=== PATIENT | female | born 1975 | race Caucasian/White ===

== ENCOUNTER 2017-02-08 14:43 | Emergency (ER) | payer MEDICAID, OTHER ==
[~2017-02-08] VITALS: Ht 162.6 cm; Wt 70.0 kg
[~2017-02-08 14:43] MED LIST: AMLO10TA80 PO; CETI10TA6 PO; HYDR25TA PO
[2017-02-08] MEDS ORDERED: IBUPROFEN 600MG TABLET PO ONE (16:30)
[2017-02-08 16:58] VITALS: BP 154/93
== END 2017-02-08 17:01 | disposition home or self-care (01) ==
LOC: ER 15:00
DX: M25.512 Pain in left shoulder (principal); I10 Essential (primary) hypertension; Z90.49 Acquired absence of other specified parts of digestive tract; Z88.0 Allergy status to penicillin
CPT/HCPCS: 73030; 99284; A4565

== ENCOUNTER 2019-08-31 14:11 | Emergency (ER) | payer MEDICAID, OTHER ==
[~2019-08-31] VITALS: Ht 167.6 cm; Wt 84.0 kg
[2019-08-31] MEDS ORDERED: IBUPROFEN 400MG TABLET PO ONE (18:15)
[2019-08-31] MEDS ORDERED: METOCLOPRAMIDE HCL 10MG TABLET PO ONE (18:15)
[2019-08-31] MEDS ORDERED: DIPHENHYDRAMINE 25MG CAPSULE PO ONE (18:15)
[2019-08-31 18:35] VITALS: BP 153/72
== END 2019-08-31 19:54 | disposition home or self-care (01) ==
LOC: ER 14:40
DX: R51 Headache (principal); I10 Essential (primary) hypertension; Z88.0 Allergy status to penicillin; Z90.49 Acquired absence of other specified parts of digestive tract
CPT/HCPCS: 81025; 99282; J8597; Q0163

== ENCOUNTER 2021-01-17 05:51 | Emergency (ER) | payer MEDICAID, OTHER ==
[~2021-01-17] VITALS: Ht 167.6 cm; Wt 91.0 kg
[2021-01-17] MEDS ORDERED: ONDANSETRON HCL 4MG/2ML INJ IV STA (06:15)
[2021-01-17] MEDS ORDERED: MORPHINE SULFATE 4 MG/ML CPJ (NOT FOR IM USE) IV STA (06:15)
[2021-01-17 06:33] LABS: CLARITY URINE TURBID (CLEAR); KETONES URINE 2+ (NEGATIVE); LEUKOCYTE ESTERASE URINE 1+ (NEGATIVE); NITRITE URINE POSITIVE (NEGATIVE); OCCULT BLOOD URINE 3+ (NEGATIVE); PROTEIN URINE 3+ (NEGATIVE); SPECIFIC GRAVITY URINE 1.039 (1.005-1.030)
[2021-01-17 06:36] LABS: COLOR URINE AMBER (YELLOW)
[2021-01-17 06:51] LABS: BASOPHILS % 0.2 % (0.0-2.0); EOSINOPHILS % 0.3 % (0.0-5.0); HEMATOCRIT. 39.9 % (36.0-48.0); HEMOGLOBIN. 13.7 g/dL (12.0-16.0); LYMPHOCYTES % 7.2 % (20.0-50.0); MEAN CORPUSCULAR HEMOGLOBIN 30.3 pg (28.0-32.0); MEAN CORPUSCULAR VOLUME 88.5 fL (81.0-99.0); MONOCYTES % 7.7 % (2.0-8.0); NEUTROPHILS % 84.6 % (40.0-76.0); PLATELET 252 x1000/uL (130-400); RED BLOOD CELL COUNT 4.51 mill/uL (4.2-5.4); RED CELL DISTRIBUTION WIDTH 13.5 % (11.6-14.6)
[2021-01-17 06:53] LABS: INR 1.1; PROTHROMBIN TIME 11.8 sec (9.6-11.0)
[2021-01-17 07:10] LABS: CHLORIDE 102 mEq/L (98-107)
[2021-01-17] MEDS ORDERED: TOPUD PO (07:58)
[2021-01-17] MEDS ORDERED: LEVO750T46 PO (07:58)
[2021-01-17 08:23] VITALS: BP 151/92
== END 2021-01-17 08:25 | disposition home or self-care (01) ==
LOC: ER 05:51
DX: N39.0 Urinary tract infection, site not specified (principal); I10 Essential (primary) hypertension; Z90.49 Acquired absence of other specified parts of digestive tract; Z88.0 Allergy status to penicillin
CPT/HCPCS: 36415; 80053; 81003; 81025; 83690; 85025; 85610; 93005; 96374; 96375; 99284; J2270; J2405

== ENCOUNTER 2021-01-18 23:03 | Emergency (ER) | payer MEDICAID ==
[~2021-01-18] VITALS: Ht 162.6 cm; Wt 77.0 kg
[~2021-01-18 23:03] MED LIST changes: +LEVO750T46 PO; +TOPUD PO
[2021-01-18] MEDS ORDERED: ONDANSETRON 4MG ODT PO STA (23:22)
[2021-01-18] MEDS ORDERED: METOCLOPRAMIDE HCL 10MG/2ML VIAL IV STA (23:22)
[2021-01-18] MEDS ORDERED: FAMOTIDINE 20MG/2ML VIAL IV STA (23:22)
[2021-01-18] MEDS ORDERED: MAGNESIUM/ALUMINUM HYDROXIDE/SIMETHICONE 30ML UDC PO STA (23:22)
[2021-01-18] MEDS ORDERED: VISCOUS LIDOCAINE 2% 15 ML UDC PO STA (23:22)
[2021-01-19 00:59] LABS: CHLORIDE 103 mEq/L (98-107)
[2021-01-19 01:00] LABS: BASOPHILS % 0.4 % (0.0-2.0); HEMATOCRIT. 39.5 % (36.0-48.0); HEMOGLOBIN. 13.4 g/dL (12.0-16.0); LYMPHOCYTES % 20.4 % (20.0-50.0); MEAN CORPUSCULAR HEMOGLOBIN 29.7 pg (28.0-32.0); MEAN CORPUSCULAR VOLUME 87.5 fL (81.0-99.0); MEAN PLATELET VOLUME 7.9 fl (7.4-10.4); NEUTROPHILS % 67.2 % (40.0-76.0); PLATELET 286 x1000/uL (130-400); RED BLOOD CELL COUNT 4.51 mill/uL (4.2-5.4); RED CELL DISTRIBUTION WIDTH 13.4 % (11.6-14.6)
[2021-01-19 01:04] LABS: ETHANOL BLOOD < 10 mg/dL
[2021-01-19] MEDS ORDERED: IOHEXOL-300 100 ML BOTTLE ONE (01:18)
[2021-01-19 01:25] LABS: CLARITY URINE CLOUDY (CLEAR); COLOR URINE DARK YELLOW (YELLOW); KETONES URINE 1+ (NEGATIVE); LEUKOCYTE ESTERASE URINE NEGATIVE (NEGATIVE); NITRITE URINE NEGATIVE (NEGATIVE); OCCULT BLOOD URINE 2+ (NEGATIVE); PROTEIN URINE 2+ (NEGATIVE)
[2021-01-19 01:40] LABS: *BARBITURATES SCREEN URINE NEGATIVE (NEGATIVE); *COCAINE SCREEN URINE NEGATIVE (NEGATIVE); CANNABINOID URINE SCREEN NEGATIVE (NEGATIVE)
[2021-01-19 01:41] LABS: *AMPHETAMINES SCREEN URINE NEGATIVE (NEGATIVE); *BENZODIAZEPINES SCREEN URINE NEGATIVE (NEGATIVE); METHADONE URINE SCREEN NEGATIVE (NEGATIVE); PHENCYCLIDINE URINE SCREEN NEGATIVE (NEGATIVE)
[2021-01-19 01:44] LABS: OPIATES URINE SCREEN PRESUMTIVE POSITIVE (NEGATIVE)
[2021-01-19 03:29] VITALS: BP 123/73
== END 2021-01-19 03:29 | disposition home or self-care (01) ==
LOC: ER 23:32
DX: N83.202 Unspecified ovarian cyst, left side (principal); R10.9 Unspecified abdominal pain; I10 Essential (primary) hypertension; Z88.0 Allergy status to penicillin; Z90.49 Acquired absence of other specified parts of digestive tract
CPT/HCPCS: 36415; 74177; 76700; 76830; 76856; 80053; 80305; 80320; 81003; 81025; 83690; 85025; 93005; 96374; 96375; 99285; J2765; J3490; Q0162; Q9967; G0480

== ENCOUNTER 2021-03-18 11:11 | Emergency (ER) | payer MEDICAID ==
[~2021-03-18] VITALS: Ht 167.6 cm; Wt 85.0 kg
[2021-03-18 12:29] LABS: BASOPHILS % 0.5 % (0.0-2.0); EOSINOPHILS % 0.8 % (0.0-5.0); HEMATOCRIT. 35.9 % (36.0-48.0); HEMOGLOBIN. 12.8 g/dL (12.0-16.0); LYMPHOCYTES % 25.5 % (20.0-50.0); MEAN CORPUSCULAR HEMOGLOBIN 30.9 pg (28.0-32.0); MEAN CORPUSCULAR VOLUME 86.4 fL (81.0-99.0); MONOCYTES % 5.5 % (2.0-8.0); NEUTROPHILS % 67.7 % (40.0-76.0); PLATELET 323 x1000/uL (130-400); RED BLOOD CELL COUNT 4.16 mill/uL (4.2-5.4); RED CELL DISTRIBUTION WIDTH 13.5 % (11.6-14.6)
[2021-03-18 12:36] LABS: CHLORIDE 106 mEq/L (98-107)
[2021-03-18 12:40] LABS: HCG SCREEN NEGATIVE
[2021-03-18] MEDS ORDERED: CLIN300C12 MT (12:47)
[2021-03-18] MEDS ORDERED: IBUP-2029 MT (12:48)
[2021-03-18] MEDS: CLINDAMYCIN 300 MG in DEXTROSE 5% WATER 50 ML IV ONE (12:50)
[2021-03-18] MEDS: KETOROLAC 15MG/ML VIAL IV ONE (12:51)
[2021-03-18 13:31] VITALS: BP 151/78
== END 2021-03-18 13:35 | disposition home or self-care (01) ==
LOC: ER 11:11
DX: R68.84 Jaw pain (principal); I10 Essential (primary) hypertension; Z88.0 Allergy status to penicillin; Z90.49 Acquired absence of other specified parts of digestive tract
CPT/HCPCS: 36415; 80053; 81025; 84703; 85025; 96365; 96375; 99284; J1885; J3490; J7060; Z7610

== ENCOUNTER 2021-06-17 09:46 | Emergency (ER) | payer MEDICAID ==
[~2021-06-17] VITALS: Ht 167.6 cm; Wt 86.0 kg
[~2021-06-17 09:46] MED LIST changes: +CLIN300C12 MT; +IBUP-2029 MT
[2021-06-17] MEDS ORDERED: SODIUM CHLORIDE 0.9% 1,000 ML IV ONE (10:00)
[2021-06-17 10:33] LABS: BASOPHILS % 0.6 % (0.0-2.0); EOSINOPHILS % 1.2 % (0.0-5.0); HEMATOCRIT. 38.7 % (36.0-48.0); HEMOGLOBIN. 13.7 g/dL (12.0-16.0); LYMPHOCYTES % 23.3 % (20.0-50.0); MEAN CORPUSCULAR VOLUME 87.3 fL (81.0-99.0); MEAN PLATELET VOLUME 7.9 fl (7.4-10.4); MONOCYTES % 6.9 % (2.0-8.0); PLATELET 307 x1000/uL (130-400); RED BLOOD CELL COUNT 4.43 mill/uL (4.2-5.4); RED CELL DISTRIBUTION WIDTH 13.1 % (11.6-14.6)
[2021-06-17 10:40] LABS: CHLORIDE 107 mEq/L (98-107)
[2021-06-17 10:41] LABS: CLARITY URINE CLOUDY (CLEAR); COLOR URINE YELLOW (YELLOW); KETONES URINE TRACE (NEGATIVE); LEUKOCYTE ESTERASE URINE TRACE (NEGATIVE); NITRITE URINE NEGATIVE (NEGATIVE); OCCULT BLOOD URINE 3+ (NEGATIVE); PROTEIN URINE 2+ (NEGATIVE); SPECIFIC GRAVITY URINE 1.024 (1.005-1.030)
[2021-06-17 10:45] LABS: ETHANOL BLOOD < 10 mg/dL
[2021-06-17 10:54] LABS: *AMPHETAMINES SCREEN URINE NEGATIVE (NEGATIVE); *BARBITURATES SCREEN URINE NEGATIVE (NEGATIVE); *BENZODIAZEPINES SCREEN URINE NEGATIVE (NEGATIVE); *COCAINE SCREEN URINE NEGATIVE (NEGATIVE)
[2021-06-17 10:55] LABS: CANNABINOID URINE SCREEN NEGATIVE (NEGATIVE); METHADONE URINE SCREEN NEGATIVE (NEGATIVE); OPIATES URINE SCREEN NEGATIVE (NEGATIVE); PHENCYCLIDINE URINE SCREEN NEGATIVE (NEGATIVE)
[2021-06-17] MEDS ORDERED: KETOROLAC 30MG/ML VIAL IV ONE (12:00)
[2021-06-17 12:01] LABS: PROTHROMBIN TIME 10.7 sec (9.6-11.0)
[2021-06-17] MEDS ORDERED: NITR-87 MT (13:01)
[2021-06-17] MEDS ORDERED: IBUP-2029 MT (13:01)
[2021-06-17] MEDS ORDERED: PYR200 MT (13:01)
[2021-06-17 13:22] VITALS: BP 162/82
== END 2021-06-17 13:24 | disposition home or self-care (01) ==
LOC: ER 09:46
DX: N39.0 Urinary tract infection, site not specified (principal); I10 Essential (primary) hypertension; Z88.0 Allergy status to penicillin; Z79.899 Other long term (current) drug therapy; Z90.49 Acquired absence of other specified parts of digestive tract
CPT/HCPCS: 36415; 76705; 76830; 76856; 80053; 80305; 80320; 81003; 83690; 84484; 85025; 85610; 93005; 96374; 99285; J1885; J7030; G0480

== ENCOUNTER 2021-11-11 19:26 | Emergency (ER) | payer MEDICAID ==
[~2021-11-11] VITALS: Ht 167.6 cm; Wt 87.0 kg
[~2021-11-11 19:26] MED LIST changes: +NITR-87 MT; +PYR200 MT
[2021-11-11] MEDS ORDERED: IBUPROFEN 600MG TABLET PO ONE (20:15)
[2021-11-11 21:27] VITALS: BP 159/79
== END 2021-11-11 21:28 | disposition home or self-care (01) ==
LOC: ER 19:26
DX: M25.512 Pain in left shoulder (principal); I10 Essential (primary) hypertension; Z88.0 Allergy status to penicillin; Z79.899 Other long term (current) drug therapy; Z90.49 Acquired absence of other specified parts of digestive tract
CPT/HCPCS: 73030; 81025; 93005; 99283

== ENCOUNTER 2022-02-19 10:08 | Emergency (ER) | payer MEDICAID ==
[~2022-02-19] VITALS: Ht 167.6 cm; Wt 82.0 kg
[2022-02-19] MEDS ORDERED: LABETALOL HCL VIAL 20 MG/4 ML VIAL IV ONE (11:15)
[2022-02-19] MEDS ORDERED: PROCHLORPERAZINE 10MG/2ML VIAL IV ONE (11:15)
[2022-02-19] MEDS ORDERED: DIPHENHYDRAMINE 50MG/ML VIAL IV ONE (11:15)
[2022-02-19 11:25] LABS: BASOPHILS % 0.7 % (0.0-2.0); EOSINOPHILS % 1.4 % (0.0-5.0); HEMATOCRIT. 37.4 % (36.0-48.0); HEMOGLOBIN. 12.8 g/dL (12.0-16.0); MEAN CORPUSCULAR HEMOGLOBIN 30.1 pg (28.0-32.0); MEAN CORPUSCULAR VOLUME 87.9 fL (81.0-99.0); MEAN PLATELET VOLUME 8.2 fl (7.4-10.4); MONOCYTES % 6.1 % (2.0-8.0); NEUTROPHILS % 68.8 % (40.0-76.0); PLATELET 328 x1000/uL (130-400); RED BLOOD CELL COUNT 4.26 mill/uL (4.2-5.4); RED CELL DISTRIBUTION WIDTH 13.4 % (11.6-14.6)
[2022-02-19] MEDS ORDERED: LABETALOL 5MG/ML SYR 20 MG/4 ML SYRINGE IV NR (11:30)
[2022-02-19] MEDS ORDERED: DIPHENHYDRAMINE 50MG/ML VIAL IV NR (11:30)
[2022-02-19 11:32] LABS: CHLORIDE 109 mEq/L (98-107)
[2022-02-19] MEDS ORDERED: SODIUM CHLORIDE 0.9% 500 ML IV ONE (11:45)
[2022-02-19] MEDS ORDERED: KETOROLAC 15MG/ML VIAL IV ONE (13:30)
[2022-02-19 14:41] VITALS: BP 161/74
[2022-02-19] MEDS ORDERED: KETOROLAC 15MG/ML VIAL IV NR (15:00)
== END 2022-02-19 15:15 | disposition home or self-care (01) ==
LOC: ER 10:16
DX: R51.9 Headache, unspecified (principal); I10 Essential (primary) hypertension; Z90.49 Acquired absence of other specified parts of digestive tract; Z79.899 Other long term (current) drug therapy
CPT/HCPCS: 36415; 80053; 85025; 96361; 96374; 96375; 99285; J0780; J1200; J1885; J3490

== ENCOUNTER 2022-03-05 11:37 | Emergency (ER) | payer MEDICAID ==
[~2022-03-05] VITALS: Ht 167.6 cm; Wt 89.0 kg
[~2022-03-05 11:37] MED LIST changes: +CLIN-194 MT; -CLIN300C12 MT
[2022-03-05 11:44] VITALS: BP 208/99
[2022-03-05] MEDS ORDERED: CYCL10TA21 MT (16:28)
[2022-03-05] MEDS ORDERED: CLIN-116 MT (16:28)
[2022-03-05] MEDS ORDERED: CLINDAMYCIN 600 MG in DEXTROSE 5% WATER 50 ML IV ONE (16:30)
[2022-03-05] MEDS ORDERED: CLINDAMYCIN 600 MG PREMIX 50 ML IV NR (16:30)
[2022-03-05] MEDS ORDERED: CYCLOBENZAPRINE 10MG TABLET PO ONE (16:30)
== END 2022-03-05 17:56 | disposition home or self-care (01) ==
LOC: ER 11:43
DX: K04.7 Periapical abscess without sinus (principal); I10 Essential (primary) hypertension; Z90.49 Acquired absence of other specified parts of digestive tract; Z79.899 Other long term (current) drug therapy
CPT/HCPCS: 96365; 99284; J3490; J7060

== ENCOUNTER 2022-05-26 23:21 | Emergency (ER) | payer MEDICAID ==
[~2022-05-26] VITALS: Ht 167.6 cm; Wt 94.0 kg
[~2022-05-26 23:21] MED LIST changes: +CLIN-116 MT; +CYCL10TA21 MT
[2022-05-27] MEDS ORDERED: METHOCARBAMOL 750MG TABLET PO SCH (00:45)
[2022-05-27] MEDS ORDERED: ACETAMINOPHEN 325MG TABLET PO ONE (00:45)
[2022-05-27] MEDS ORDERED: KETOROLAC 60MG/2ML VIAL IM ONE (00:45)
[2022-05-27] MEDS: LIDOCAINE 5% PATCH TOP SCH ×2 (00:45→01:07)
[2022-05-27] MEDS ORDERED: IBUP-2028 MT (02:02)
[2022-05-27] MEDS ORDERED: METH-653 MT (02:02)
[2022-05-27] MEDS ORDERED: LIDO1ADH23 TP (02:02)
[2022-05-27 02:19] VITALS: BP 115/78
== END 2022-05-27 02:20 | disposition home or self-care (01) ==
LOC: ER 23:21
DX: M25.512 Pain in left shoulder (principal); I49.8 Other specified cardiac arrhythmias; I10 Essential (primary) hypertension; Z88.0 Allergy status to penicillin; Z90.49 Acquired absence of other specified parts of digestive tract
CPT/HCPCS: 73030; 93005; 96372; 99283; J1885

== ENCOUNTER 2022-11-05 18:10 | Emergency (ER) | payer MEDICAID ==
[~2022-11-05] VITALS: Ht 165.1 cm; Wt 91.0 kg
[~2022-11-05 18:10] MED LIST changes: +IBUP-2028 MT; -LEVO750T46 PO; +LEVO750T68 PO; +LIDO1ADH23 TP; +METH-653 MT
[2022-11-05 18:27] VITALS: BP 195/100
[2022-11-05] MEDS ORDERED: ACETAMINOPHEN 500MG TABLET PO ONE (22:15)
[2022-11-05 22:57] LABS: BASOPHILS % 0.7 % (0.0-2.0); EOSINOPHILS % 1.8 % (0.0-5.0); HEMATOCRIT. 43.2 % (36.0-48.0); HEMOGLOBIN. 14.9 g/dL (12.0-16.0); LYMPHOCYTES % 22.3 % (20.0-50.0); MEAN CORPUSCULAR HEMOGLOBIN 30.4 pg (28.0-32.0); MEAN CORPUSCULAR VOLUME 88.3 fL (81.0-99.0); MEAN PLATELET VOLUME 7.7 fl (7.4-10.4); NEUTROPHILS % 70.2 % (40.0-76.0); PLATELET 389 x1000/uL (130-400)
[2022-11-05 22:58] LABS: CHLORIDE 104 mEq/L (98-107)
[2022-11-06] MEDS ORDERED: CLONIDINE 0.2MG TABLET PO ONE (00:15)
== END 2022-11-06 00:49 | disposition home or self-care (01) ==
LOC: ER 18:55
DX: M25.512 Pain in left shoulder (principal); I10 Essential (primary) hypertension; Z20.822 Contact with and (suspected) exposure to COVID-19; Z90.49 Acquired absence of other specified parts of digestive tract; Z88.0 Allergy status to penicillin
CPT/HCPCS: 36415; 71045; 73030; 80053; 83880; 84484; 85025; 87426; 87804; 93005; 99284; C9803

== ENCOUNTER 2022-12-15 20:45 | Emergency (ER) | payer MEDICAID ==
[~2022-12-15] VITALS: Ht 167.6 cm; Wt 96.8 kg
[2022-12-15] MEDS ORDERED: KETOROLAC 60MG/2ML VIAL IM ONE (22:45)
[2022-12-16] MEDS ORDERED: IBUP-2029 MT (00:56)
[2022-12-16 01:15] VITALS: BP 170/98
[2022-12-16] MEDS ORDERED: KETOROLAC 60MG/2ML VIAL IM NR (01:15)
== END 2022-12-16 01:26 | disposition home or self-care (01) ==
LOC: ER 20:45
DX: S50.01XA Contusion of right elbow, initial encounter (principal); I10 Essential (primary) hypertension; W01.0XXA Fall on same level from slipping, tripping and stumbling without subsequent striking against object, initial encounter; Y93.89 Activity, other specified; Y92.9 Unspecified place or not applicable; Z88.0 Allergy status to penicillin; Z90.49 Acquired absence of other specified parts of digestive tract
CPT/HCPCS: 73080; 96372; 99283; J1885; Z7610; A4565

== ENCOUNTER 2023-05-04 12:56 | Emergency (ER) | payer MEDICAID ==
[~2023-05-04] VITALS: Ht 167.6 cm; Wt 86.0 kg
[2023-05-04 13:50] VITALS: O2SAT 100
[2023-05-04] MEDS ORDERED: ACETAMINOPHEN 325MG TABLET PO ONE (15:00)
[2023-05-04] MEDS ORDERED: IBUP-2029 MT (15:31)
[2023-05-04 16:36] VITALS: BP 202/96; PULSE 72; RESP 18; TEMP 98.7
== END 2023-05-04 16:38 | disposition home or self-care (01) ==
LOC: ER 13:05
DX: M25.521 Pain in right elbow (principal); I10 Essential (primary) hypertension; Z90.49 Acquired absence of other specified parts of digestive tract; Z79.899 Other long term (current) drug therapy
CPT/HCPCS: 73080; 99283; A4565

== ENCOUNTER 2023-06-03 10:09 | Emergency (ER) | payer MEDICAID ==
[~2023-06-03] VITALS: Ht 167.6 cm; Wt 84.0 kg
[2023-06-03 10:12] VITALS: TEMP 99.1; O2SAT 97
[2023-06-03] MEDS ORDERED: DIPHENHYDRAMINE 50MG/ML VIAL IV ONE ×2 (10:45→13:15)
[2023-06-03] MEDS ORDERED: KETOROLAC 15MG/ML VIAL IV ONE ×2 (10:45→13:15)
[2023-06-03] MEDS ORDERED: METOCLOPRAMIDE HCL 10MG/2ML VIAL IV ONE (10:45)
[2023-06-03 11:45] VITALS: BP 176/85; PULSE 90; RESP 16
[2023-06-03] MEDS ORDERED: KETOROLAC 15MG/ML VIAL IM ONE (11:45)
[2023-06-03] MEDS ORDERED: DIPHENHYDRAMINE 25MG CAPSULE PO ONE (11:45)
[2023-06-03] MEDS ORDERED: METOCLOPRAMIDE HCL 10MG TABLET PO ONE (11:45)
[2023-06-03] MEDS ORDERED: SODIUM CHLORIDE 0.9% 1,000 ML IV ONE (13:15)
[2023-06-03] MEDS ORDERED: ASPIRIN 81MG TABLET PO ONE (16:15)
[2023-06-03 17:03] LABS: BASOPHILS % 0.6 % (0.0-2.0); EOSINOPHILS % 0.7 % (0.0-5.0); HEMATOCRIT. 38.7 % (36.0-48.0); HEMOGLOBIN. 13.3 g/dL (12.0-16.0); LYMPHOCYTES % 19.1 % (20.0-50.0); MEAN CORPUSCULAR HEMOGLOBIN 30.4 pg (28.0-32.0); MEAN CORPUSCULAR HGB CONC 34.5 g/dL (31.0-37.0); MEAN CORPUSCULAR VOLUME 88.2 fL (81.0-99.0); MONOCYTES % 6.5 % (2.0-8.0); NEUTROPHILS % 73.1 % (40.0-76.0); PLATELET 347 x1000/uL (130-400); RED BLOOD CELL COUNT 4.38 mill/uL (4.2-5.4); RED CELL DISTRIBUTION WIDTH 13.7 % (11.6-14.6); WHITE BLOOD COUNT 10.1 x1000/uL (4.5-11.0)
[2023-06-03 17:14] LABS: CHLORIDE 105 mEq/L (98-107); INDEX HEMOLYSI 1 (1-3); INDEX ICTERIC 1 (1-4); INDEX LIPEMIC 1 (1-3); POTASSIUM 4.2 mEq/L (3.5-5.1); SODIUM 135 mEq/L (136-145)
[2023-06-03 17:20] LABS: PROTHROMBIN TIME 10.5 sec (9.6-11.0)
[2023-06-03 17:25] LABS: CARBON DIOXIDE 27 mEq/L (21-32)
[2023-06-03 17:26] LABS: ALANINE AMINOTRANSFERASE 44 IU/L (13-61); ALBUMIN 3.8 g/dL (3.4-5.0); ASPARTATE AMINOTRANSFERASE 20 IU/L (15-37); BILIRUBIN TOTAL 0.8 mg/dL (0.1-1.0); CALCIUM 8.8 mg/dL (8.5-10.1); CREATININE 0.6 mg/dL (0.6-1.3); GLUCOSE 93 mg/dL (70-105); TROPONIN I HIGH SENSITIVITY 12 ng/L (<54); UREA NITROGEN BLOOD 10 mg/dL (7-21)
== END 2023-06-03 17:48 | disposition left against medical advice (07) ==
LOC: ER 10:22 → CANBEDREQ 17:43 → ER 17:48
DX: R51.9 Headache, unspecified (principal); I10 Essential (primary) hypertension; Z90.49 Acquired absence of other specified parts of digestive tract; Z79.899 Other long term (current) drug therapy
CPT/HCPCS: 99285; 70450; 71045; 80053; 81025; 85025; 85610; 84484; 36415; 96372; Q0163; J8597; J1885; J7030

== ENCOUNTER 2023-08-08 11:31 | Emergency (ER) | payer MEDICAID ==
[~2023-08-08] VITALS: Ht 167.6 cm; Wt 87.0 kg
[2023-08-08 11:40] VITALS: BP 187/108; PULSE 109; RESP 18; TEMP 98; O2SAT 96
[2023-08-08] MEDS ORDERED: DEXT15LI5 MT (13:10)
== END 2023-08-08 13:44 | disposition home or self-care (01) ==
LOC: ER 11:31
DX: R05.9 Cough, unspecified (principal); I10 Essential (primary) hypertension; Z88.0 Allergy status to penicillin; Z79.899 Other long term (current) drug therapy; Z90.49 Acquired absence of other specified parts of digestive tract; Z86.59 Personal history of other mental and behavioral disorders
CPT/HCPCS: 71045; 99283; Z7610

== ENCOUNTER 2023-09-09 16:20 | Emergency (ER) | payer MEDICAID ==
[~2023-09-09] VITALS: Ht 165.1 cm; Wt 91.0 kg
[~2023-09-09 16:20] MED LIST changes: +DEXT15LI5 MT
[2023-09-09 16:30] VITALS: TEMP 97.9; O2SAT 99
[2023-09-09] MEDS ORDERED: DIPHENHYDRAMINE 50MG/ML VIAL IV ONE (17:00)
[2023-09-09] MEDS ORDERED: KETOROLAC 30MG/ML VIAL IV ONE (17:00)
[2023-09-09] MEDS ORDERED: PROCHLORPERAZINE 10MG/2ML VIAL IV ONE (17:00)
[2023-09-09 19:16] LABS: BASOPHILS % 0.4 % (0.0-2.0); DIFFERENTIAL COMMENT 0; EOSINOPHILS % 1.3 % (0.0-5.0); HEMATOCRIT. 38.7 % (36.0-48.0); HEMOGLOBIN. 12.9 g/dL (12.0-16.0); MEAN CORPUSCULAR HGB CONC 33.3 g/dL (31.0-37.0); MEAN CORPUSCULAR VOLUME 90.2 fL (81.0-99.0); MONOCYTES % 4.4 % (2.0-8.0); NEUTROPHILS % 70.9 % (40.0-76.0); PLATELET 339 x1000/uL (130-400); RED BLOOD CELL COUNT 4.29 mill/uL (4.2-5.4); RED CELL DISTRIBUTION WIDTH 12.9 % (11.6-14.6); WHITE BLOOD COUNT 8.4 x1000/uL (4.5-11.0)
[2023-09-09 19:32] LABS: ALANINE AMINOTRANSFERASE 39 IU/L (10-49); ALBUMIN 3.8 g/dL (3.2-4.8); ASPARTATE AMINOTRANSFERASE 27 IU/L (<34); BILIRUBIN TOTAL 0.3 mg/dL (0.1-1.0); CALCIUM 8.8 mg/dL (8.7-10.4); CARBON DIOXIDE 26 mEq/L (21-32); CHLORIDE 106 mEq/L (98-107); CREATININE 0.6 mg/dL (0.6-1.0); GLUCOSE 99 mg/dL (70-105); POTASSIUM 3.7 mEq/L (3.5-5.1); PROTEIN TOTAL 6.2 g/dL (6.0-8.3); SODIUM 139 mEq/L (136-145); UREA NITROGEN BLOOD 11 mg/dL (9-23)
[2023-09-09 19:35] LABS: HCG SCREEN NEGATIVE
[2023-09-09] MEDS ORDERED: ASPI-740 PO (19:48)
[2023-09-09 20:07] VITALS: BP 156/62; PULSE 62; RESP 14
== END 2023-09-09 20:12 | disposition home or self-care (01) ==
LOC: ER 16:20
DX: G43.909 Migraine, unspecified, not intractable, without status migrainosus (principal); I10 Essential (primary) hypertension; Z79.899 Other long term (current) drug therapy
CPT/HCPCS: 80053; 84703; 85025; 36415; 96374; 96375; 99285; J1200; J1885; J0780; Z7610

== ENCOUNTER 2023-10-04 10:57 | Emergency (ER) | payer MEDICAID ==
[~2023-10-04] VITALS: Ht 162.6 cm; Wt 87.0 kg
[~2023-10-04 10:57] MED LIST changes: +ASPI-740 PO
[2023-10-04 11:13] VITALS: BP 187/100; PULSE 85; RESP 18; O2SAT 99
[2023-10-04 11:41] VITALS: TEMP 98.9
[2023-10-04] MEDS ORDERED: ACETAMINOPHEN 325MG TABLET PO STA (11:41)
[2023-10-04] MEDS ORDERED: IBUP-2029 MT (13:14)
== END 2023-10-04 13:31 | disposition home or self-care (01) ==
LOC: ER 10:57
DX: B34.9 Viral infection, unspecified (principal); M25.512 Pain in left shoulder; I10 Essential (primary) hypertension; Z88.0 Allergy status to penicillin; Z79.899 Other long term (current) drug therapy; Z90.49 Acquired absence of other specified parts of digestive tract; Z86.59 Personal history of other mental and behavioral disorders
CPT/HCPCS: 71045; 81025; 99283

== ENCOUNTER 2024-11-07 18:09 | Emergency (ER) | payer MEDICAID ==
[~2024-11-07] VITALS: Ht 162.6 cm; Wt 70.0 kg
[2024-11-07 18:14] VITALS: O2SAT 100
[2024-11-07] MEDS ORDERED: ACETAMINOPHEN 325MG TABLET PO ONE (19:00)
[2024-11-07] MEDS ORDERED: AMLODIPINE 10MG TABLET PO ONE (19:00)
[2024-11-07] MEDS: AMLODIPINE 5MG TABLET PO NR (19:35)
[2024-11-07] MEDS: ACETAMINOPHEN 325MG TABLET PO NR (19:35)
[2024-11-07 19:47] LABS: BASOPHILS % 0.4 % (0.0-2.0); EOSINOPHILS % 1.8 % (0.0-5.0); HEMATOCRIT. 37.4 % (36.0-48.0); HEMOGLOBIN. 12.4 g/dL (12.0-16.0); LYMPHOCYTES % 22.9 % (20.0-50.0); MEAN CORPUSCULAR HGB CONC 33.2 g/dL (31.0-37.0); MEAN CORPUSCULAR VOLUME 90.3 fL (81.0-99.0); MEAN PLATELET VOLUME 8.5 fl (7.4-10.4); NEUTROPHILS % 68.9 % (40.0-76.0); PLATELET 315 x1000/uL (130-400); RED BLOOD CELL COUNT 4.14 mill/uL (4.2-5.4); RED CELL DISTRIBUTION WIDTH 13.4 % (11.6-14.6); WHITE BLOOD COUNT 8.4 x1000/uL (4.5-11.0)
[2024-11-07 19:54] LABS: CHLORIDE 106 mEq/L (98-107); POTASSIUM 3.5 mEq/L (3.5-5.1); SODIUM 138 mEq/L (136-145)
[2024-11-07 19:55] LABS: CARBON DIOXIDE 26 mEq/L (21-32)
[2024-11-07 19:56] LABS: CALCIUM 8.9 mg/dL (8.7-10.4)
[2024-11-07 19:58] LABS: HCG SCREEN NEGATIVE
[2024-11-07 20:00] LABS: CREATININE 0.7 mg/dL (0.6-1.0); GLUCOSE 103 mg/dL (70-105); UREA NITROGEN BLOOD 14 mg/dL (9-23)
[2024-11-07] MEDS: IBUPROFEN 400MG TABLET PO ONE (20:59)
[2024-11-07] MEDS: HYDROCHLOROTHIAZIDE 25MG TABLET PO ONE (20:59)
[2024-11-07 22:13] VITALS: BP 190/99; PULSE 83; RESP 16; TEMP 36.7; O2SAT 96
== END 2024-11-07 22:13 | disposition home or self-care (01) ==
LOC: ER 18:09
DX: G43.909 Migraine, unspecified, not intractable, without status migrainosus (principal); I10 Essential (primary) hypertension; Z79.899 Other long term (current) drug therapy; Z86.73 Personal history of transient ischemic attack (TIA), and cerebral infarction without residual deficits; Z90.49 Acquired absence of other specified parts of digestive tract; Z88.0 Allergy status to penicillin
CPT/HCPCS: 36415; 80048; 84703; 85025; 93005; 99284